=== PATIENT | male | born 2000 | race Caucasian/White ===

== ENCOUNTER 2023-03-03 11:37 | Emergency (ER) | payer OTHER, SELFPAY ==
[2023-03-03 11:43] VITALS: BP 118/67; PULSE 80; RESP 18; TEMP 36.6; O2SAT 98; BMI 23.1
--- NOTE | 2023-03-03 12:21 | ED.WOUNDLAC1 ---
HPI - Wound/Laceration General Chief Complaint: Wound/Laceration Stated Complaint: UPPER EXTREMITY INJURY RIGHT HAND Time Seen by Provider: 03/03/23 11:45 Source: patient Mode of arrival: walk-in Limitations: no limitations History of Present Illness HPI narrative: the patient accidentally sliced the edge of his right thumb using a slicer. He took off a significant amount of skin from the right thumb and it is actively bleeding. No other injuries. His tetanus is not up to date. Related Data Allergies Allergy/AdvReac Type Severity Reaction Status Date / Time No Known Drug Allergies Allergy Verified 03/03/23 11:43 Exam Narrative Exam Narrative: Nurses notes and vital signs reviewed and patient is not hypoxic. afebrile General: Well-appearing and in no apparent distress. Skin: Warm, dry, no pallor noted. Head: Normocephalic, atraumatic. Cardiovascular: normal peripheral perfusion. Respiratory: No accessory muscle use or respiratory distress. Musculoskeletal: removal of superficial and subcutaneous skin along the radial aspect of the right thumb involving both the proximal and distal phalanx. All fingers of right hand with normal ROM Neurological: A&O x4. No cranial nerve dysfunction observed. No truncal ataxia. Moves all extremities. Sensation intact. Psychiatric: Cooperative and interactive. Normal mood and affect. Constitutional Vital Signs, click to edit/add: Last Vital Signs Temp 98 F 03/03/23 11:43 Pulse 80 03/03/23 11:43 Resp 18 03/03/23 11:43 BP 118/67 03/03/23 11:43 Pulse Ox 98 03/03/23 11:43 O2 Del Method Room Air 03/03/23 11:43 Course Vital Signs Vital signs: Vital Signs Temperature 98 F 03/03/23 11:43 Pulse Rate 80 03/03/23 11:43 Respiratory Rate 18 03/03/23 11:43 Blood Pressure 118/67 03/03/23 11:43 Pulse Oximetry 98 03/03/23 11:43 Oxygen Delivery Method Room Air 03/03/23 11:43 Temperature 98 F 03/03/23 11:43 Pulse Rate 80 03/03/23 11:43 Respiratory Rate 18 03/03/23 11:43 Blood Pressure 118/67 03/03/23 11:43 Pulse Oximetry 98 03/03/23 11:43 Oxygen Delivery Method Room Air 03/03/23 11:43 MDM - Wound/Laceration MDM Narrative Medical decision making narrative: gauze applied to the right thumb to staunch the bleeding. I applied a tourniquet to the base of the patient's right thumb. I applied xeroform covered with telfa and gauze sponge and then wrapped the right thumb in Kerlix. Patient and I discussed the injury and the length of time this will likely take to heal - no edges to close or suture closed. The wound will have to slowly heal over time. he will need to watch for sign of infection, see his PCP for follow or return to the ED if he worsens. Discharge Plan Discharge Chief Complaint: Wound/Laceration Clinical Impression: Avulsion of skin Patient Disposition: Home, Self-Care Time of Disposition Decision: 12:27 Instructions: Skin Avulsion (ED), Acute Wounds (ED) Stand Alone Forms: Portal Instructions Referrals: Physician,Non-Staff, MD [Primary Care Provider] - 1 week
[2023-03-03] MEDS: ADACEL DIPH,PERTUSS(ACELL),TET VAC/PF 0.5 ML ADULT SYRINGE IM (12:35)
[2023-03-03] MEDS: OXYCODONE HCL/ACETAMINOPHEN 5MG/325MG 1 TAB PO (12:37)
== END 2023-03-03 12:43 | disposition home or self-care (01) ==
PROVIDERS: Emergency Provider Emergency Medicine
DX: S61.001A Unspecified open wound of right thumb without damage to nail, initial encounter (principal); W26.8XXA Contact with other sharp object(s), not elsewhere classified, initial encounter; Z23 Encounter for immunization
CPT/HCPCS: 90471; 90715; 99283